=== PATIENT | male | born 1955 | race Caucasian/White ===

== ENCOUNTER → 2016-10-09 | Outpatient (CLI) | payer OTHER ==
--- NOTE | 2016-10-09 13:58 | RADRPT ---
EXAM DATE/TIME: 10/09/2016 13:19 [place] COMPARISON: No previous studies available for comparison. INDICATIONS : Short of breath, malignant neoplasm of respiratory tract. RADIATION DOSE: 4.07 CTDIvol (mGy) MEDICAL HISTORY : Prior questionable lesions on exam 3 years ago. SURGICAL HISTORY : Appendectomy. ENCOUNTER: Initial ACUITY: >1 yr PAIN SCALE: 1/10 LOCATION: Bilateral chest TECHNIQUE: Volumetric scanning of the chest was performed. Using automated exposure control and adjustment of t he mA and/or kV according to patient size, radiation dose was kept as low as reasonably achievable to obtain optimal diagnostic quality images. DICOM format image data is available electronically for r eview and comparison. Follow-up recommendations for incidentally detected pulmonary nodules are based at a minimum on nodul e size and patient risk factors according to Fleischner Society Guidelines. FINDINGS: LUNGS: There is no consolidation or pneumothorax. No concerning pulmonary nodule is visualized. There is hy peraeration of the lung ruiz bilaterally with some mild central lobar emphysema. Some mild small bu llous changes are noted in the left apex. There is scarring in both apices. There is some linear scar ring in the left lung base. No acute pulmonary infiltrates. PLEURAE: There is no pleural thickening or pleural effusion. MEDIASTINUM: The heart and great vessels demonstrate no acute abnormality. There is no mediastinal or hilar lymph adenopathy. Coronary calcifications. Atherosclerotic changes in the aorta. AXILLAE: Within normal limits. No lymphadenopathy. MUSCULOSKELETAL: Within normal limits for patient age. MISCELLANEOUS: The visualized upper abdominal organs demonstrate no acute abnormality. Diffuse fatty infiltration th e liver. CONCLUSION: 1. Hyperaeration of both lung ruiz suggesting some central lobar emphysema. 2. No focal or acute intrathoracic disease. 3. Diffuse fatty infiltration of the liver. Rajeev Mcnair MD on October 09, 2016 at 13:54 Board Certified Radiologist. This report was verified electronically.
== END ==
LOC: HRAD 12:29
DX: Z12.2 Encounter for screening for malignant neoplasm of respiratory organs (principal)
CPT/HCPCS: 71250